=== PATIENT | female | born 1990 | race Two or more races ===

== ENCOUNTER 2023-04-29 07:21 | Emergency (ER) | payer MEDICAID, OTHER ==
[~2023-04-29] VITALS: Ht 162.6 cm; Wt 86.5 kg
[2023-04-29 07:40] VITALS: BP 113/74
[2023-04-29 08:04] VITALS: PULSE 82; RESP 16; O2SAT 98
[2023-04-29 08:46] LABS: Urine Bacteria FEW /hpf (None Seen); Urine Blood Negative /uL (Negative); Urine Clarity Clear (Clear); Urine Protein, UAD Negative (Negative); Urine Specific Gravity 1.007 (1.001-1.035); Urine Urobilinogen Normal (Negative); Urine WBC <1 /hpf (0 - 5); Urine pH 6.5 (5.0-8.0)
[2023-04-29 08:47] LABS: Urine Color Straw (Yellow)
[2023-04-29 09:40] VITALS: PULSE 72
== END 2023-04-29 10:35 | disposition left against medical advice (07) ==
LOC: ER 07:21
DX: R42 Dizziness and giddiness (principal); J44.9 Chronic obstructive pulmonary disease, unspecified; Z79.899 Other long term (current) drug therapy
CPT/HCPCS: 70450; 81001; 82962; 93005

== ENCOUNTER 2023-10-12 09:42 | Emergency (ER) | payer MEDICAID ==
[~2023-10-12] VITALS: Ht 162.6 cm; Wt 82.3 kg
[2023-10-12 10:58] VITALS: BP 103/56; PULSE 77; RESP 18; TEMP 97.2; O2SAT 99
[2023-10-12 11:52] LABS: COVID19 ANTIGEN SOFIA FIA NEGATIVE (NEGATIVE)
[2023-10-12] MEDS ORDERED: IBUP-1456 PO (11:56)
[2023-10-12] MEDS ORDERED: CEPH500C PO (11:56)
== END 2023-10-12 12:00 | disposition home or self-care (01) ==
LOC: ER 09:42
DX: J03.90 Acute tonsillitis, unspecified (principal); F17.210 Nicotine dependence, cigarettes, uncomplicated; Z20.822 Contact with and (suspected) exposure to COVID-19
CPT/HCPCS: 36415; 87426